=== PATIENT | male | born 1990 | race African-American/Black ===

== ENCOUNTER 2018-06-08 21:36 | Emergency (ER) | payer OTHER, BC ==
[~2018-06-08] VITALS: Ht 180.3 cm; Wt 74.8 kg
[2018-06-08] MEDS ORDERED: KEFLEX500 M1 PO (22:28)
[2018-06-08 23:39] VITALS: BP 138/85
== END 2018-06-08 23:40 | disposition home or self-care (01) ==
LOC: M.ERS 21:36
DX: S61.212A Laceration without foreign body of right middle finger without damage to nail, initial encounter (principal); Z88.6 Allergy status to analgesic agent; W26.8XXA Contact with other sharp object(s), not elsewhere classified, initial encounter; Y92.89 Other specified places as the place of occurrence of the external cause; Y99.0 Civilian activity done for income or pay; Y99.8 Other external cause status

== ENCOUNTER 2019-04-02 08:45 | Emergency (ER) | payer BC ==
[~2019-04-02] VITALS: Ht 180.3 cm; Wt 80.7 kg
[~2019-04-02 08:45] MED LIST: KEFLEX500 M1 PO
[2019-04-02 09:11] LABS: INFLUENZA A ANTIGEN Negative (Negative)
[2019-04-02] MEDS ORDERED: ZOFRAN ODT4 MG DISSOLVE (09:15)
[2019-04-02 09:44] VITALS: BP 129/91
== END 2019-04-02 09:45 | disposition home or self-care (01) ==
LOC: M.ERS 08:45
PROVIDERS: Emergency Medicine Emergency Medical Services
DX: J11.1 Influenza due to unidentified influenza virus with other respiratory manifestations (principal); F17.210 Nicotine dependence, cigarettes, uncomplicated; Z88.6 Allergy status to analgesic agent